=== PATIENT | female | born 1955 | race Caucasian/White ===

== ENCOUNTER 2022-11-27 13:07 | Outpatient (CLI) | payer SELFPAY | END 2022-11-27 13:08 | disposition home or self-care (01) | LOC: LKVREF 13:08 | PROVIDERS: PCP Emergency Medicine; Visit Provider Emergency Medicine | DX: Z00.00 Encounter for general adult medical examination without abnormal findings (principal); R00.0 Tachycardia, unspecified; I10 Essential (primary) hypertension | CPT/HCPCS: 84443 ==